=== PATIENT | male | born 1960 | race African-American/Black ===

== ENCOUNTER 2017-09-17 13:47 | Inpatient (IN) | payer BC, OTHER ==
[2017-09-17 14:32] LABS: Hemoglobin 14.6 g/dL (14.0-18.0); Mean Corpuscular HGB CONC 34.4 g/dL (32.0-36.0); Mean Corpuscular Hemoglobin 29.6 pg (27.0-31.0); Mean Corpuscular Volume 86.1 fl (80.0-94.0); Mean Platelet Volume 8.4 fL (7.4-10.4); Platelet Count 240 thou/uL (130-400); RBC Distribution Width 13.1 % (11.5-14.5); Red Blood Cell (RBC) Count 4.95 mill/uL (4.70-6.10); White Blood Cell (WBC) Count 8.2 thou/uL (4.8-10.8)
[2017-09-17 14:37] LABS: ALT (SGPT) 30 U/L (8-55); AST (SGOT) 22 U/L (5-34); Albumin 4.1 g/dL (3.5-5.0); Alkaline Phosphatase 105 U/L (40-150); Anion Gap 14 mmol/L (10-20); BUN (Urea Nitrogen) 7 mg/dL (8.4-25.7); Bilirubin, Total 0.8 mg/dL (0.2-1.2); CK (CPK) 435 U/L (30-200); Calc. Creatinine Clearance 0 mL/min (70-130); Calcium 9.6 mg/dL (7.8-10.44); Carbon Dioxide 24 mmol/L (22-29); Chloride 104 mmol/L (98-107); Estimated GFR-MDRD 75; Globulin 3.9 g/dL (2.4-3.5); Glucose 99 mg/dL (70-105); Lipase 27 U/L (8-78); Potassium 3.7 mmol/L (3.5-5.1); Sodium 138 mmol/L (136-145)
[2017-09-17] MEDS ORDERED: Nitroglycerin 0.4 MG TAB (25 Tab Bottle) ONE (14:39)
[2017-09-17] MEDS ORDERED: Aspirin 81 mg Enteric Coated Tablet ONE (14:39)
[2017-09-17 14:40] LABS: CKMB 1.7 ng/mL (0-6.6); Troponin I 0.011 ng/mL (< 0.028)
[2017-09-17 14:45] LABS: #Basophils 0.1 thou/uL (0.0-0.2); #Lymphocytes 1.9 thou/uL (1.20-3.40); #Monocytes 0.8 thou/uL (0.11-0.59); Band 2 % (5-11); Lymphocytes 25 % (21-51); MDiff Complete? YES; Monocytes 5 % (0-10); Neutrophil 60 % (42-75); PLT Morphology Comment Appears Adequate; RBC Morphology Normal; Reactive Lymphocytes 5 % (0-10)
--- NOTE | 2017-09-17 15:18 | RAD ---
UPRIGHT PORTABLE CHEST 1 VIEW: Date: 09/17/17 HISTORY: 57-year-old male with chest pain. COMPARISON: 01/26/16. FINDINGS: Heart size is normal. The lungs are clear. No pneumonia, edema, or pleural effusion. IMPRESSION: No acute intrathoracic disease. Stable from prior study. POS: [facility]
[2017-09-17] MEDS ORDERED: Nitroglycerin 2% Ointment 1 INCH/1 GM Packet ONE (15:42)
--- NOTE | 2017-09-17 15:48 | HP ---
PRIMARY CARE PHYSICIAN: August Mata M.D. REASON FOR ADMISSION: Chest pain. HISTORY OF PRESENT ILLNESS: A 57-year-old -[place] Citizen male who has history of hypertension and dyslipidemia, but he is not taking any medication. He came to the emergency room today with complain t of chest pain. Patient reports that this afternoon he was watching a football game and all of sudd enly he was having substernal pressure, dull ache sensation which was radiating to neck and teeth. H e denies any associated nausea, vomiting, diaphoresis, shortness of breath. He denies any calf tende rness. He denies any pleuritic chest pain. He denies any relation of chest pain with food, respirat ion or activity. His intensity of pain is about 3-5/10. There was no specific aggravating or reliev ing factor. The pain was constant and that is why he decided to come to the emergency room for evalu ation. In the emergency room, routine blood tests showed elevated total CK, but cardiac enzymes are negative. EKG showed LVH with nonspecific ST-T changes. When I saw this patient, at that time, the patient's pain was subsided and getting better. He denies any trauma. He denies any local tendernes s. He denies any flu-like symptoms. He denies any fever or chills. He denies any constipation, froylan rrhea, melena, or hematochezia. He denies any abdominal pain. He denies any focal symptoms. REVIEW OF SYSTEMS: The following complete review of systems was negative, unless otherwise mentioned in the HPI or below: Constitutional: Weight loss or gain, ability to conduct usual activities. Skin: Rash, itching. Eyes: Double vision, pain. ENT/Mouth: Nose bleeding, neck stiffness, pain, tenderness. Cardiovascular: Palpitations, dyspnea on exertion, orthopnea. Respiratory: Shortness of breath, wheezing, cough, hemoptysis, fever or night sweats. Gastrointestinal: Poor appetite, abdominal pain, heartburn, nausea, vomiting, constipation, or diarr hea. Genitourinary: Urgency, frequency, dysuria, nocturia. Musculoskeletal: Pain, swelling. Neurologic/Psychiatric: Anxiety, depression. Allergy/Immunologic: Skin rash, bleeding tendency. Please see my HPI for pertinent positives and negatives. All other review of systems reviewed and ne gative except as mentioned in the HPI. ALLERGIES: No known drug allergies. CURRENT HOME MEDICATIONS: The patient is not taking any prescribed or non-prescribed medication. PAST MEDICAL HISTORY: Hypertension and dyslipidemia. PAST SURGICAL HISTORY: Appendicectomy, right shoulder surgery, right quadriceps surgery. PAST PSYCHIATRIC HISTORY: Reviewed and negative. SOCIAL HISTORY: Patient is and lives at home with family. He is retired. He used to be pas tor. He denies any tobacco, alcohol or illicit drug abuse. FAMILY HISTORY: No strong family history of premature coronary artery disease, stroke or cancer. EMERGENCY ROOM COURSE: Patient is given aspirin 324 mg and nitroglycerin 0.4 mg sublingual. PHYSICAL EXAMINATION: VITAL SIGNS: On arrival, blood pressure 177/118, pulse 82, respiratory rate 20, temperature 99.5, sa turation 96% on room air, weight 113.4 kilograms. GENERAL: Patient is currently alert, awake, no acute distress. HEAD: Normocephalic, atraumatic. EYES: Pupils round, reactive to light. Extraocular muscles intact. ENT: Oropharynx within normal limits. Moist mucous membranes. No oral lesions. No pharyngeal eryt kay[place], no exudate. NECK: Supple, no JVD, no thyromegaly, no carotid bruit, no jugular venous distension, no meningeal s igns of irritation. LUNGS: Clear to auscultation without any rhonchi or rales. CARDIAC: S1, S2 regular. No murmur, no gallop, no rub. ABDOMEN: Soft, bowel sounds present, nontender, nondistended. No organomegaly, no mass, no suprapub ic tenderness. BACK: Examination unremarkable, no CVA tenderness. EXTREMITIES: Upper extremity passive movements of all joints are normal. Lower extremity, no calf t enderness. EXTREMITIES: No edema. Good peripheral pulsation. SKIN: No skin rash. HEMATOLOGICAL SYSTEM: No lymphadenopathy. PSYCHIATRIC: Normal affect. NEUROLOGIC: The patient is alert and oriented x3. Speech normal. Cranial nerves II-XII intact. Mo tor and sensation within normal limits. No cerebellar signs. Reflexes symmetrical. IMAGING DATA AND SIGNIFICANT LABORATORY DATA: 1. EKG based on my review reveals normal sinus rhythm, LVH, nonspecific ST-T changes. 2. Chest x-ray based on my review, no acute cardiopulmonary process. 3. CBC: WBC 8.2, hemoglobin 14.6, platelet 240 with bandemia. 4. BMP: Sodium 138, potassium 3.7, chloride 104, carbon dioxide 24, anion gap 14, BUN 7, creatinine 1.20, glucose 99, calcium 9.6. 5. LFT: AST 22, ALT 30, alkaline phosphatase 105, albumin 4.1, lipase 27, CK 435, CK-MB 1.7, tropon in 0.011. ASSESSMENT AND PLAN/IMPRESSION: 1. Acute chest pain. Patient's chest pain description is concerning for cardiac etiology given acut e onset of pain and substernal in location and radiating to neck and jaw. EKG is showing left ventri cular hypertrophy with mild nonspecific changes. His troponin is currently negative. He has elevate d total CK. At this point, we will keep this patient in the hospital for observation. We will do se rial cardiac enzymes x3. If troponin remains negative, then we will consider doing stress test tomor row morning for diagnostic reason. If troponin is getting worse or abnormal then, in that case, we w ill consult Cardiology, obtain echocardiography and we will keep him n.p.o. after midnight and possib ly he may need cardiac catheterization only if troponin is significantly abnormal. Currently, paige diamond is given aspirin 325 mg p.o. daily. We will continue nitropatch q.8 hourly. We will check lipid p rofile for risk stratification. 2. Rhabdomyolysis. Patient has elevated total CK along with bandemia. I will check urine drug scre en to rule out any etiology. I will also check TSH to rule out any hypothyroidism. 3. Hypertension, without any specific medications. At this point, we are starting with nitropatch q .8 hourly and then upon discharge, we will consider starting antihypertensive medication. 4. Dyslipidemia. We will repeat lipid profile tomorrow and based on lipid profile we will start sta tin therapy if needed. 5. Morbid obesity. Dietary education given and weight loss education given. Healthy lifestyle celeste ures discussed with the patient. 6. Deep venous thrombosis prophylaxis not needed because we are expecting discharge in 24 hours. 7. Gastrointestinal prophylaxis, Pepcid 20 mg p.o. b.i.d. 8. Code status: The patient is FULL CODE. The patient's is present at bedside and is surrogat e decision maker. Disposition plan based on above-mentioned investigation results. Plan of care discussed with the pat ient and family member at bedside in the emergency room.
[2017-09-17] MEDS ORDERED: HYDROcodone/Acetaminophen 5/325 mg Tablet PO PRN (16:31)
[2017-09-17] MEDS ORDERED: Milk Of Magnesia 30 ML UDCUP PO PRN (16:31)
[2017-09-17] MEDS ORDERED: hydrALAZINE 20 MG/ML VIAL SLOW IVP PRN (16:31)
[2017-09-17] MEDS ORDERED: Loperamide HCl 2 MG CAP PO PRN (16:31)
[2017-09-17] MEDS ORDERED: Eucerin (Mineral Oil/Petrolatum,White) 30 gm Jar TOP PRN (16:31)
[2017-09-17] MEDS ORDERED: Chloraseptic Spray 180 ml Bottle PO PRN (16:31)
[2017-09-17] MEDS ORDERED: Sodium Chloride 0.65% Nasal 44 ML BOT EA NARE PRN (16:31)
[2017-09-17] MEDS ORDERED: Zolpidem Tartrate 5 MG TAB PO PRN (16:31)
[2017-09-17] MEDS ORDERED: Acetaminophen 325 MG TAB PO PRN (16:31)
[2017-09-17] MEDS ORDERED: Nitroglycerin 0.4 MG TAB (25 Tab Bottle) SL PRN (16:31)
[2017-09-17] MEDS ORDERED: Loratadine 10 MG TAB PO PRN (16:31)
[2017-09-17] MEDS ORDERED: Mag-Al 1200 mg/1200 mg/30 ML UDCUP PO PRN (16:31)
[2017-09-17] MEDS ORDERED: Artificial Tears 18 DROP/0.9 ML EA EYE PRN (16:31)
[2017-09-17] MEDS ORDERED: Diabetic Tussin 200 MG/10 ML UDCUP PO PRN (16:31)
[2017-09-17] MEDS ORDERED: Senokot 8.6 MG TAB PO PRN (16:31)
[2017-09-17 17:25] LABS: Troponin I 0.226 ng/mL (< 0.028)
[2017-09-17] MEDS ORDERED: FLU VACC QS2017-18 36 mo. & older 0.5 ML SYRINGE IM ONE (17:30)
[2017-09-17 20:50] LABS: Troponin I 2.644 ng/mL (< 0.028)
[2017-09-17] MEDS ORDERED: Enoxaparin Sodium 120 MG/0.8 ML SYRINGE SC SCH (21:30)
[2017-09-17] MEDS: Nitroglycerin 2% Ointment 1 INCH/1 GM Packet TOP SCH (21:51)
[2017-09-17] MEDS: Famotidine 20 MG TAB PO SCH (21:52)
[2017-09-18] MEDS: Nitroglycerin 2% Ointment 1 INCH/1 GM Packet TOP SCH ×3 (04:11→21:43)
[2017-09-18 04:40] LABS: Cardiac Risk 5.1 (Less than 4.5)
[2017-09-18] MEDS ORDERED: Iopamidol 370 76% 100 ML VIAL ONE (08:10)
--- NOTE | 2017-09-18 08:39 | CON ---
DATE OF CONSULTATION: 09/18/2017 REASON FOR CONSULTATION: Unstable angina. REFERRING PROVIDER: Dr. Cunningham. HISTORY OF PRESENT ILLNESS: Mr. Shoemaker is a 57-year-old gentleman with a past history of hypertension , recently presented with acute onset of chest pain. It occurred at rest. It persisted. He proceed ed to the emergency room and received nitroglycerin with resolution. His troponin went from negative to 2.0. He is currently pain free. PAST MEDICAL HISTORY: Hypertension. ALLERGIES: None. MEDICATIONS: None. PAST SURGICAL HISTORY: Hyperlipidemia, hypertension, appendectomy, shoulder surgery. SOCIAL HISTORY: No current tobacco or alcohol use. He is currently . REVIEW OF SYSTEMS: Ten-point review of systems is reviewed and as above, otherwise negative. PHYSICAL EXAMINATION: GENERAL: Patient is a pleasant male who is in no acute distress. The patient appears his stated age . VITAL SIGNS: Blood pressure 138/99, pulse 69, temperature 98.2. NEUROLOGIC: The patient is alert and oriented times 3 with no focal neurologic deficits. HEENT: Sclerae without icterus. Mouth has moist mucous membranes with normal pallor. NECK: No JVD. Carotid upstroke brisk. No bruits bilaterally. LUNGS: Clear to auscultation with unlabored respirations. BACK: No scoliosis or kyphosis. CARDIAC: Regular rate and rhythm with normal S1 and S2. No S3 or S4 noted. No significant rubs, mur murs, thrills, or gallops noted throughout the precordium. PMI is not displaced. There is no parast ernal heave. ABDOMEN: Soft, nontender, nondistended. No peritoneal signs present. No hepatosplenomegaly. No abnormal striae. EXTREMITIES: 2+ femoral and 2+ dorsalis pedis pulses. No cyanosis, clubbing, or edema. SKIN: No gross abnormalities. PERTINENT LABORATORY DATA: As above. IMAGING DATA: EKG normal sinus rhythm with ST-T wave changes suggesting ischemia noted inferiorly. IMPRESSION: Unstable angina. RECOMMENDATIONS: I discussed a conservative versus aggressive approach. Given the findings and pres entation, would recommend coronary angiography, possible PCI. I discussed the procedure in full deta il with Mr. Shoemaker. Risks included not limited to the following: , stroke, MT, need for emergen cy surgery, loss of limb, bleeding, and infection, as well as a reaction to the dye causing kidney fa ilure and needing long-term dialysis. Other risks include acute stent thrombosis and restenosis, vess el dissection, perforation, need for emergency surgery in addition to distal embolization causing chr onic foot discomfort as well as amputation. All questions were answered. Given the above, the patie nt agreed to proceed with the above procedure. I also discussed drug-coated versus nondrug coated st ent placement. There are no contractions. We will proceed if needed.
[2017-09-18] MEDS: Metoprolol Tartrate 25 MG TAB PO SCH ×2 (08:53→21:28)
[2017-09-18] MEDS: Aspirin 325 MG TAB PO SCH (08:53)
[2017-09-18] MEDS: Famotidine 20 MG TAB PO SCH ×2 (08:53→21:28)
--- NOTE | 2017-09-18 10:51 | PDOC.PN ---
- Subjective Encounter Start Date: 09/18/17 Encounter Start Time: 07:40 -: old records requested/rev Patient seen and examined. No new complaints. No overnight events - Objective Resuscitation Status: Resuscitation Status FULL:Full Resuscitation MAR Reviewed: Yes Vital Signs & Weight: Vital Signs (12 hours) Temp Pulse Resp BP BP Pulse Ox 09/18/17 08:00 98.2 F 69 16 09/18/17 07:41 98.2 F 69 16 138/99 H 98 09/18/17 04:00 98.6 F 61 18 132/79 96 Weight Weight 250 lb I&O: 09/17/17 09/18/17 09/19/17 06:59 06:59 06:59 Intake Total 1250 Balance 1250 Result Diagrams: 09/17/17 14:03 09/17/17 14:03 EKG Reviewed by me: Yes Phys Exam - Physical Examination Constitutional: NAD HEENT: PERRLA, moist MMs, sclera anicteric Neck: no JVD, supple Respiratory: no wheezing, no rales, no rhonchi Cardiovascular: RRR, no significant murmur, no rub Gastrointestinal: soft, non-tender, no distention, positive bowel sounds Musculoskeletal: no edema, pulses present Neurological: non-focal, normal sensation, moves all 4 limbs Psychiatric: normal affect, A&O x 3 Skin: no rash, normal turgor Dx/Plan (1) NSTEMI (non-ST elevated myocardial infarction) Code(s): I21.4 - NON-ST ELEVATION (NSTEMI) MYOCARDIAL INFARCTION Status: Acute (2) Rhabdomyolysis Code(s): M62.82 - RHABDOMYOLYSIS Status: Acute (3) Dyslipidemia Code(s): E78.5 - HYPERLIPIDEMIA, UNSPECIFIED Status: Chronic (4) Hypertension Code(s): I10 - ESSENTIAL (PRIMARY) HYPERTENSION Status: Chronic (5) Obesity (BMI 30.0-34.9) Code(s): E66.9 - OBESITY, UNSPECIFIED Status: Chronic - Plan cont current plan of care, plan discussed w/ family * lovenox given * today cardiac cath * DC stress test * get Echo * add metoprolol * add lipitor * monitor today * change to inpt status * medication reviewed as below * symptomatic treatment. * expecting dc tomorrow Review of Systems - Review of Systems Constitutional: negative: fever, chills, sweats, weakness, malaise, other ENT: negative: Ear Pain, Ear Discharge, Nose Pain, Nose Discharge, Nose Congestion, Mouth Pain, Mouth Swelling, Throat Pain, Throat Swelling, Other Respiratory: negative: Cough, Dry, Shortness of Breath, Hemoptysis, SOB with Excertion, Pleuritic Pain, Sputum, Wheezing Cardiovascular: negative: chest pain, palpitations, orthopnea, paroxysmal nocturnal dyspnea, edema, light headedness, other Gastrointestinal: negative: Nausea, Vomiting, Abdominal Pain, Diarrhea, Constipation, Melena, Hematochezia, Other Genitourinary: negative: Dysuria, Frequency, Incontinence, Hematuria, Retention , Other Musculoskeletal: negative: Neck Pain, Shoulder Pain, Arm Pain, Back Pain, Hand Pain, Leg Pain, Foot Pain, Other Skin: negative: Rash, Lesions, Bharat, Bruising, Other - Medications/Allergies Allergies/Adverse Reactions: Allergies Allergy/AdvReac Type Severity Reaction Status Date / Time No Known Allergies Allergy Verified 09/17/17 17:18 Medications: Current Medications Acetaminophen (Tylenol) 650 mg PO Q4H PRN PRN Reason: Headache/Fever or Pain Hydrocodone Bitart/Acetaminophen ([place] 5/325) 1 tab PO Q4H PRN PRN Reason: Moderate Pain (4-6) Al Hydroxide/Mg Hydroxide (Maalox) 30 ml PO Q6H PRN PRN Reason: Heartburn or Indigestion Artificial Tears (Tears Naturale) 0 drop EA EYE PRN PRN PRN Reason: Dry Eyes Aspirin (Aspirin) 325 mg PO DAILY [facility] Last Admin: 09/18/17 08:53 Dose: 325 mg Atorvastatin Calcium (Lipitor) 10 mg PO HS [facility] Famotidine (Pepcid) 20 mg PO BID [facility] Last Admin: 09/18/17 08:53 Dose: 20 mg Guaifenesin (Robitussin Sf) 200 mg PO Q4H PRN PRN Reason: Cough Hydralazine HCl (Apresoline) 10 mg SLOW IVP Q4H PRN PRN Reason: Systolic BP > 180 Loperamide HCl (Imodium) 2 mg PO PRN PRN PRN Reason: Diarrhea/Loose Stools Loratadine (Claritin) 10 mg PO DAILYPRN PRN PRN Reason: Sinus Symptoms Magnesium Hydroxide (Milk Of Magnesium) 30 ml PO DAILYPRN PRN PRN Reason: Constipation Metoprolol Tartrate (Lopressor) 25 mg PO BID [facility] Last Admin: 09/18/17 08:53 Dose: 25 mg Mineral Oil/White Petrolatum (Eucerin Cream) 0 gm TOP BIDPRN PRN PRN Reason: Dry Skin Nitroglycerin (Nitrostat) 0.4 mg SL Q5MIN PRN PRN Reason: Chest Pain Nitroglycerin (Nitro-Bid 2% Ointment) 0.5 inch TOP Q8HR [facility] Last Admin: 09/18/17 04:11 Dose: Not Given Phenol (Chloraseptic [place] 180 Ml Bot) 0 ml PO PRN PRN PRN Reason: Sore Throat Senna (Senokot) 2 tab PO HSPRN PRN PRN Reason: Constipation Sodium Chloride ([place] Nasal [place] 0.65%) 0 ml EA NARE QIDPRN PRN PRN Reason: Nasal Congestion Zolpidem Tartrate (Ambien) 5 mg PO HSPRN PRN PRN Reason: Insomnia
[2017-09-18] MEDS ORDERED: Verapamil 5 MG/2 ML VIAL ONE (11:08)
[2017-09-18] MEDS ORDERED: Nitroglycerin 100MG/250ML BOT 250 ML ONE (11:08)
[2017-09-18] MEDS ORDERED: Heparin 10,000 UNITS/1 ML VIAL ONE (11:08)
[2017-09-18] MEDS ORDERED: Midazolam HCl 2 mg/2 ml Vial ONE (11:13)
[2017-09-18] MEDS ORDERED: Fentanyl 100 MCG/2 ML VIAL ONE (11:13)
[2017-09-18] MEDS ORDERED: Aggrastat 12.5 MG/250 ML 250 ML ONE (11:54)
[2017-09-18] MEDS ORDERED: Acetaminophen/Codeine 30-300mg Tablet PO PRN ×2 (12:04)
[2017-09-18] MEDS ORDERED: Nitroglycerin 0.4 MG TAB (25 Tab Bottle) SL PRN (12:04)
[2017-09-18] MEDS ORDERED: traMADol HCl 50 MG TAB PO PRN (12:04)
[2017-09-18] MEDS ORDERED: Sodium Chloride 0.9% 1,000 ML IV SCH (12:15)
[2017-09-18] MEDS ORDERED: Sodium Chloride 0.9% 200 ML IV SCH (12:15)
--- NOTE | 2017-09-18 18:05 | CON ---
DATE OF CONSULTATION: 09/18/2017 REASON FOR CONSULTATION: Evaluate the patient with coronary artery disease for coronary artery bypas s grafting. HISTORY OF PRESENT ILLNESS: Mr. Shoemaker is a 57-year-old gentleman whose daughter is a nurse on the te lemetry unit. He was admitted with chest pressure and tightness. He has a history of hypertension a nd dyslipidemia. Troponin was 2.0 in the emergency department. 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 This had a se parate origin from the aorta. The LAD has its origin from the right coronary artery. It is not anjum r whether this passes anteriorly or posteriorly to the pulmonary artery. The right coronary and LAD had no significant stenosis. I have been asked to see him for further recommendations. Currently, t he patient is resting comfortably on the telemetry unit. He has no chest pain. He is on Aggrastat d rips. PAST MEDICAL HISTORY: 1. Hypertension. 2. Dyslipidemia. PAST SURGICAL HISTORY: 1. Appendectomy. 2. Right shoulder surgery. 3. Right quadriceps surgery for quadriceps tear. SOCIAL HISTORY: He has never smoked. He is and lives at home. He is retired. FAMILY HISTORY: His mother had a coronary stent and a pacemaker placed. REVIEW OF SYSTEMS: Ten point review of systems is performed and is negative except as above. PHYSICAL EXAMINATION: GENERAL: Well-developed and well-nourished man, resting comfortably in bed. VITAL SIGNS: Height 6 feet 3 inches, weight 250 pounds, BSA is 2.45. Temperature is 97.7, pulse is 61 and regular, blood pressure 126/67. HEENT: Sclerae nonicteric. Pupils are equal and round bilaterally. NECK: Supple without carotid bruit. CHEST: Clear bilaterally. HEART: Rhythm is regular without murmur. ABDOMEN: Soft and nontender. EXTREMITIES: No cyanosis, clubbing, or edema. VASCULAR: He has palpable carotid, radial, femoral, and dorsalis pedis pulses bilaterally. VENOUS: There are no venous varicosities or venous stasis changes. LABORATORY DATA: Of note, his hemoglobin is 14.6, platelet count is 240,000. Creatinine is 1.2. Po tassium is 3.7. ASSESSMENT AND PLAN: I have discussed his coronary anatomy with he and his daughter. I would like t o get a CT angio of his chest to evaluate the course of his LAD as this will influence whether we byp ass and ligate the proximal LAD or if the LAD passes anterior, the pulmonary artery if it will be lef t alone. Certainly he has bypassable targets in his circumflex system. I have discussed surgery in detail and we will plan for a CT tomorrow and potential surgery on Monday.
[2017-09-18] MEDS: Enoxaparin Sodium 120 MG/0.8 ML SYRINGE SC SCH (21:27)
[2017-09-18] MEDS: Atorvastatin Calcium 10 MG TAB PO SCH (21:27)
[2017-09-18] MEDS: Aggrastat 12.5 MG/250 ML 250 ML IVPB SCH (21:28)
[2017-09-19 05:24] LABS: Hemoglobin 13.8 g/dL (14.0-18.0); Platelet Count 240 thou/uL (130-400)
[2017-09-19] MEDS: Nitroglycerin 2% Ointment 1 INCH/1 GM Packet TOP SCH ×3 (06:13→22:31)
[2017-09-19] MEDS: Aspirin 325 MG TAB PO SCH (08:52)
[2017-09-19] MEDS: Famotidine 20 MG TAB PO SCH ×2 (08:53→20:38)
[2017-09-19] MEDS: Metoprolol Tartrate 25 MG TAB PO SCH ×2 (08:53→20:38)
[2017-09-19] MEDS: Enoxaparin Sodium 120 MG/0.8 ML SYRINGE SC SCH (08:54)
[2017-09-19] MEDS: Aggrastat 12.5 MG/250 ML 250 ML IVPB SCH (08:55)
--- NOTE | 2017-09-19 09:40 | PDOC.PN ---
- Subjective Encounter Start Date: 09/19/17 Encounter Start Time: 08:10 Patient seen and examined. No new complaints. No overnight events - Objective Resuscitation Status: Resuscitation Status FULL:Full Resuscitation MAR Reviewed: Yes Vital Signs & Weight: Vital Signs (12 hours) Temp Pulse Resp BP Pulse Ox 09/19/17 08:47 97.9 F 62 18 135/88 95 09/19/17 04:30 94 L 09/19/17 04:00 97.8 F 56 L 18 117/66 94 L 09/19/17 00:12 94 L 09/19/17 00:00 98.3 F 62 18 111/58 L 94 L Weight Weight 250 lb 8 oz I&O: 09/18/17 09/19/17 09/20/17 06:59 06:59 06:59 Intake Total 1250 2016 Output Total 700 Balance 1250 1316 Result Diagrams: 09/19/17 04:37 09/17/17 14:03 EKG Reviewed by me: Yes Phys Exam - Physical Examination Constitutional: NAD HEENT: PERRLA, moist MMs, sclera anicteric Neck: no JVD, supple Respiratory: no wheezing, no rales, no rhonchi Cardiovascular: RRR, no significant murmur, no rub Gastrointestinal: soft, non-tender, no distention, positive bowel sounds Musculoskeletal: no edema, pulses present Neurological: non-focal, normal sensation, moves all 4 limbs Psychiatric: normal affect, A&O x 3 Skin: no rash, normal turgor Dx/Plan (1) NSTEMI (non-ST elevated myocardial infarction) Code(s): I21.4 - NON-ST ELEVATION (NSTEMI) MYOCARDIAL INFARCTION Status: Acute (2) Rhabdomyolysis Code(s): M62.82 - RHABDOMYOLYSIS Status: Acute (3) Dyslipidemia Code(s): E78.5 - HYPERLIPIDEMIA, UNSPECIFIED Status: Chronic (4) Hypertension Code(s): I10 - ESSENTIAL (PRIMARY) HYPERTENSION Status: Chronic (5) Obesity (BMI 30.0-34.9) Code(s): E66.9 - OBESITY, UNSPECIFIED Status: Chronic (6) CAD (coronary artery disease) Code(s): I25.10 - ATHSCL HEART DISEASE OF [place] CORONARY ARTERY W/O ANG PCTRS Status: Acute - Plan cont current plan of care, plan discussed w/ family * CT surgeon planning to do CABG tomorrow * medication reviewed as below * symptomatic treatment * will monitor. Review of Systems - Review of Systems ENT: negative: Ear Pain, Ear Discharge, Nose Pain, Nose Discharge, Nose Congestion, Mouth Pain, Mouth Swelling, Throat Pain, Throat Swelling, Other Respiratory: negative: Cough, Dry, Shortness of Breath, Hemoptysis, SOB with Excertion, Pleuritic Pain, Sputum, Wheezing Cardiovascular: negative: chest pain, palpitations, orthopnea, paroxysmal nocturnal dyspnea, edema, light headedness, other Gastrointestinal: negative: Nausea, Vomiting, Abdominal Pain, Diarrhea, Constipation, Melena, Hematochezia, Other Genitourinary: negative: Dysuria, Frequency, Incontinence, Hematuria, Retention , Other Musculoskeletal: negative: Neck Pain, Shoulder Pain, Arm Pain, Back Pain, Hand Pain, Leg Pain, Foot Pain, Other Skin: negative: Rash, Lesions, Bharat, Bruising, Other - Medications/Allergies Allergies/Adverse Reactions: Allergies Allergy/AdvReac Type Severity Reaction Status Date / Time No Known Allergies Allergy Verified 09/17/17 17:18 Medications: Current Medications Acetaminophen (Tylenol) 650 mg PO Q4H PRN PRN Reason: Headache/Fever or Pain Acetaminophen/Codeine Phosphate (Tylenol #3) 1 tab PO Q4H PRN PRN Reason: Mild Pain (1-3) Acetaminophen/Codeine Phosphate (Tylenol #3) 2 tab PO Q4H PRN PRN Reason: Moderate Pain (4-6) Hydrocodone Bitart/Acetaminophen ([place] 5/325) 1 tab PO Q4H PRN PRN Reason: Moderate Pain (4-6) Al Hydroxide/Mg Hydroxide (Maalox) 30 ml PO Q6H PRN PRN Reason: Heartburn or Indigestion Artificial Tears (Tears Naturale) 0 drop EA EYE PRN PRN PRN Reason: Dry Eyes Aspirin (Aspirin) 325 mg PO DAILY [facility] Last Admin: 09/19/17 08:52 Dose: 325 mg Atorvastatin Calcium (Lipitor) 10 mg PO HS [facility] Last Admin: 09/18/17 21:27 Dose: 10 mg Enoxaparin Sodium (Lovenox) 120 mg SC 0900,2100 [facility] Last Admin: 09/19/17 08:54 Dose: 120 mg Famotidine (Pepcid) 20 mg PO BID [facility] Last Admin: 09/19/17 08:53 Dose: 20 mg Guaifenesin (Robitussin Sf) 200 mg PO Q4H PRN PRN Reason: Cough Hydralazine HCl (Apresoline) 10 mg SLOW IVP Q4H PRN PRN Reason: Systolic BP > 180 Tirofiban/Sodium Chloride (Aggrastat 12.5 Mg/250 Ml) 250 mls @ 0 mls/hr IVPB INF [facility]; As Directed PRN Reason: Protocol Last Admin: 09/19/17 08:55 Dose: 250 mls Loperamide HCl (Imodium) 2 mg PO PRN PRN PRN Reason: Diarrhea/Loose Stools Loratadine (Claritin) 10 mg PO DAILYPRN PRN PRN Reason: Sinus Symptoms Magnesium Hydroxide (Milk Of Magnesium) 30 ml PO DAILYPRN PRN PRN Reason: Constipation Metoprolol Tartrate (Lopressor) 25 mg PO BID [facility] Last Admin: 09/19/17 08:53 Dose: 25 mg Mineral Oil/White Petrolatum (Eucerin Cream) 0 gm TOP BIDPRN PRN PRN Reason: Dry Skin Nitroglycerin (Nitrostat) 0.4 mg SL Q5MIN PRN PRN Reason: Chest Pain Nitroglycerin (Nitro-Bid 2% Ointment) 0.5 inch TOP Q8HR [facility] Last Admin: 09/19/17 06:13 Dose: Not Given Nitroglycerin (Nitrostat) 0.4 mg SL Q5MIN PRN PRN Reason: Chest Pain Phenol (Chloraseptic [place] 180 Ml Bot) 0 ml PO PRN PRN PRN Reason: Sore Throat Senna (Senokot) 2 tab PO HSPRN PRN PRN Reason: Constipation Sodium Chloride ([place] Nasal [place] 0.65%) 0 ml EA NARE QIDPRN PRN PRN Reason: Nasal Congestion Tramadol HCl (Ultram) 50 mg PO Q6H PRN PRN Reason: Moderate Pain (4-6) Zolpidem Tartrate (Ambien) 5 mg PO HSPRN PRN PRN Reason: Insomnia
[2017-09-19] MEDS ORDERED: Communication Order-Pharmacy FS ONE (11:24)
[2017-09-19] MEDS ORDERED: Diazepam 5 MG TAB PO PRN (11:24)
[2017-09-19] MEDS ORDERED: Aggrastat 12.5 MG/250 ML 250 ML IVPB SCH (12:30)
--- NOTE | 2017-09-19 12:35 | CT ---
CTA CHEST WITH CONTRAST: HISTORY: Evaluate coronary anatomy. TECHNIQUE: CT angiogram of the chest is performed after the intravenous administration of contrast. Three-D corin dering provided. 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 Moderate coronary artery calcifications. The pulmonary trunk and visualized aorta are unremarkable. There are mildly prominent right paratracheal subcarinal lymph nodes. Mild atelectatic changes in the lung bases. No effusion or large pneumothorax on the visualized imag es. The visualized skeleton is unremarkable. IMPRESSION: 1. The left anterior descending artery emanates from the right coronary artery. 2. Nodular soft tissue densities in the anterior mediastinum with interspersed fat with concave arnie ins. Differential includes involuting thymic tissue versus adenopathy. Clinical correlation is advi sed. 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 Minimum followup in 3-6 month PET-CT is recommen ded. POS: [facility]
--- NOTE | 2017-09-19 12:37 | PRG ---
DATE OF SERVICE: 09/19/2017 SUBJECTIVE: Mr. Shoemaker is well known, chest pain and pressure noted. PHYSICAL EXAMINATION: CURRENT VITAL SIGNS: Blood pressure 127/88, pulse 50, temperature 97.3. LUNGS: Clear to auscultation. HEART: Regular rate and rhythm. ABDOMEN: Soft, nontender, and nondistended. EXTREMITIES: No edema. IMPRESSION: Unstable angina. RECOMMENDATIONS: Mr. Shoemaker's current situation is certainly complexed. I discussed several options with Mr. Shoemaker yesterday as well as discussed with Dr. Chuck Frausto. Option one would be to proceed with anticoagulation therapy and relook with angiography on Monday or to reassess the ci rcumflex artery. 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 We could attempt to placement of a stent to the circumflex artery. Unfortunately, the re is a potential for thrombus propagation and further IN. Also discussed option of bypass surgery b ypassing the circumflex artery and intermediate ramus branch at minimum. He may also need bypass of the LAD and will be determined by CT scan of the chest today. Would like to assess the course of the LAD. Discussed at length with his family and Mr. Shoemaker. He has opted for bypass surgery at minimum to the circumflex artery and possibly to the LAD. He is scheduled for tomorrow.
[2017-09-19] MEDS ORDERED: Communication Order-Pharmacy FS SCH (15:45)
[2017-09-19] MEDS: Atorvastatin Calcium 10 MG TAB PO SCH (20:38)
[2017-09-20 04:58] LABS: Hemoglobin 13.4 g/dL (14.0-18.0); Platelet Count 246 thou/uL (130-400)
[2017-09-20] MEDS: Nitroglycerin 2% Ointment 1 INCH/1 GM Packet TOP SCH (06:14)
[2017-09-20] MEDS: Metoprolol Tartrate 25 MG TAB PO SCH (06:20)
[2017-09-20] MEDS ORDERED: Heparin 10,000 UNITS/1 ML VIAL 30,000 UNITS in Sodium Chloride 0.9% 1,000 ML FS SCH (06:45)
[2017-09-20] MEDS ORDERED: CEFAZOLIN/Water 2 GM/20 ML SYRINGE ONE (09:40)
--- NOTE | 2017-09-20 10:17 | PDOC.PN ---
- Subjective Encounter Start Date: 09/20/17 Encounter Start Time: 07:00 Patient seen and examined. No new complaints. No overnight events - Objective Resuscitation Status: Resuscitation Status FULL:Full Resuscitation MAR Reviewed: Yes Vital Signs & Weight: Vital Signs (12 hours) Temp Pulse Resp BP BP Pulse Ox 09/20/17 07:35 98.0 F 53 L 18 139/83 98 09/20/17 06:00 98.3 F 63 16 132/87 95 09/20/17 04:00 98.0 F 57 L 20 132/85 Weight Weight 250 lb 6.4 oz I&O: 09/19/17 09/20/17 09/21/17 06:59 06:59 06:59 Intake Total 2015 775 Output Total 700 675 Balance 1316 100 Result Diagrams: 09/20/17 04:17 09/17/17 14:03 Radiology Reviewed by me: Yes (CTA chest) EKG Reviewed by me: Yes (NSR) Phys Exam - Physical Examination Constitutional: NAD HEENT: PERRLA, moist MMs, sclera anicteric Neck: no JVD, supple Respiratory: no wheezing, no rales, no rhonchi Cardiovascular: RRR, no significant murmur, no rub Gastrointestinal: soft, non-tender, no distention, positive bowel sounds Musculoskeletal: no edema, pulses present Neurological: non-focal, normal sensation, moves all 4 limbs Lymphatic: no nodes Psychiatric: normal affect, A&O x 3 Skin: no rash, normal turgor Dx/Plan (1) NSTEMI (non-ST elevated myocardial infarction) Code(s): I21.4 - NON-ST ELEVATION (NSTEMI) MYOCARDIAL INFARCTION Status: Acute (2) Rhabdomyolysis Code(s): M62.82 - RHABDOMYOLYSIS Status: Acute (3) Dyslipidemia Code(s): E78.5 - HYPERLIPIDEMIA, UNSPECIFIED Status: Chronic (4) Hypertension Code(s): I10 - ESSENTIAL (PRIMARY) HYPERTENSION Status: Chronic (5) Obesity (BMI 30.0-34.9) Code(s): E66.9 - OBESITY, UNSPECIFIED Status: Chronic - Plan cont current plan of care, plan discussed w/ family * medication reviewed as below * symptomatic treatment * today plan for CABG * continue pot op care as per CT surgeon * discussed with about test results. Review of Systems - Review of Systems Constitutional: negative: fever, chills, sweats, weakness, malaise, other ENT: negative: Ear Pain, Ear Discharge, Nose Pain, Nose Discharge, Nose Congestion, Mouth Pain, Mouth Swelling, Throat Pain, Throat Swelling, Other Respiratory: negative: Cough, Dry, Shortness of Breath, Hemoptysis, SOB with Excertion, Pleuritic Pain, Sputum, Wheezing Cardiovascular: negative: chest pain, palpitations, orthopnea, paroxysmal nocturnal dyspnea, edema, light headedness, other Gastrointestinal: negative: Nausea, Vomiting, Abdominal Pain, Diarrhea, Constipation, Melena, Hematochezia, Other Genitourinary: negative: Dysuria, Frequency, Incontinence, Hematuria, Retention , Other Musculoskeletal: negative: Neck Pain, Shoulder Pain, Arm Pain, Back Pain, Hand Pain, Leg Pain, Foot Pain, Other Skin: negative: Rash, Lesions, Bharat, Bruising, Other - Medications/Allergies Allergies/Adverse Reactions: Allergies Allergy/AdvReac Type Severity Reaction Status Date / Time No Known Allergies Allergy Verified 09/17/17 17:18 Medications: Current Medications Heparin Sodium (Porcine) 30, (000 units/ Sodium Chloride) 1,003 mls @ 0 mls/hr FS [facility] PRN Reason: As Directed Stop: 09/20/17 18:00 Metoprolol Tartrate (Lopressor) 25 mg PO BID [facility] Stop: 09/20/17 12:00 Last Admin: 09/20/17 06:20 Dose: 25 mg Miscellaneous Information (Communication Order-Pharmacy) 1 each FS ONE [facility] Stop: 09/20/17 12:00
[2017-09-20] MEDS ORDERED: Albumin 5% 0 ML ONE (11:25)
[2017-09-20] MEDS ORDERED: Fentanyl 100 MCG/2 ML VIAL ONE ×2 (11:33)
[2017-09-20] MEDS ORDERED: Vecuronium 10 MG VIAL ONE ×2 (11:34→14:47)
[2017-09-20] MEDS ORDERED: Midazolam HCl 5 mg/5 ml Vial ONE (11:34)
[2017-09-20] MEDS ORDERED: Bivalirudin 250 MG VIAL ONE (14:22)
[2017-09-20] MEDS ORDERED: Cardioplegic Soln 1,000 ML BAG ONE (14:47)
[2017-09-20] MEDS ORDERED: Heparin 30,000 units/30 ml VIAL ONE (14:47)
[2017-09-20] MEDS ORDERED: Lidocaine 1% PF 5 ML VIAL ONE (14:47)
[2017-09-20] MEDS ORDERED: Calcium Chloride 1 GM/10 ML Abboject SYRINGE ONE (14:47)
[2017-09-20] MEDS ORDERED: Aminocaproic Acid 5 GM/20 ML VIAL ONE (14:47)
[2017-09-20] MEDS ORDERED: Nitroglycerin 50 MG/250 ML BOT ONE (14:47)
[2017-09-20] MEDS ORDERED: Thrombin 5000 UNITS/5 ML VIAL ONE (14:47)
[2017-09-20] MEDS ORDERED: Protamine Sulfate 250 MG/25 ML VIAL ONE ×2 (14:47→15:18)
[2017-09-20] MEDS ORDERED: Propofol 200 MG/20 ML VIAL ONE (14:47)
[2017-09-20] MEDS ORDERED: Sodium Bicarb 50 MEQ/50 ML VIAL ONE (14:47)
[2017-09-20] MEDS ORDERED: Norepinephrine 8 MG/0.9% NS 250 ML ONE (15:03)
[2017-09-20] MEDS ORDERED: Potassium Chloride 20 MEQ/100 ML PREMIX BAG IVPB PRN (16:13)
[2017-09-20] MEDS ORDERED: Hetastarch 6% 500 ML 500 ML IVPB PRN (16:13)
[2017-09-20] MEDS ORDERED: Mag-Al 1200 mg/1200 mg/30 ML UDCUP PO PRN (16:13)
[2017-09-20] MEDS ORDERED: hydrALAZINE 20 MG/ML VIAL SLOW IVP PRN (16:13)
[2017-09-20] MEDS ORDERED: Guaifenesin DM 100-10/5 ML UDCUP PO PRN (16:13)
[2017-09-20] MEDS ORDERED: D5 1/2 NS w/20 mEq KCL 1,000 ML IV SCH (16:13)
[2017-09-20] MEDS ORDERED: HYDROcodone/Acetaminophen 5/325 mg Tablet PO PRN (16:13)
[2017-09-20] MEDS ORDERED: Ondansetron HCl/PF 4 MG/2 ML Vial IVP PRN (16:13)
[2017-09-20] MEDS ORDERED: Nitroglycerin 50 MG/250 ML BOT 250 ML IVPB PRN (16:13)
[2017-09-20] MEDS ORDERED: Norepinephrine 8 MG/0.9% NS 250 ML IVPB PRN (16:13)
[2017-09-20] MEDS ORDERED: Fentanyl 100 MCG/2 ML VIAL SLOW IVP PRN ×2 (16:13)
[2017-09-20] MEDS ORDERED: Promethazine HCl 25 MG/ML VIAL IM PRN (16:13)
[2017-09-20] MEDS ORDERED: Bisacodyl 5 MG TAB PO PRN (16:13)
[2017-09-20] MEDS ORDERED: Bisacodyl 10 MG SUPP PR PRN (16:13)
[2017-09-20] MEDS ORDERED: Acetaminophen 325 MG TAB PO PRN (16:13)
[2017-09-20] MEDS ORDERED: Dextrose 50% Abboject 50 ML SYRINGE SLOW IVP PRN (16:21)
[2017-09-20] MEDS ORDERED: Dextrose 5% in Water 1,000 ML IV PRN (16:21)
[2017-09-20] MEDS ORDERED: Insulin Regular 300 UNITS/3 ML VIAL SC PRN (16:21)
[2017-09-20] MEDS ORDERED: Nitroglycerin 50 MG/250 ML BOT 250 ML ONE (16:28)
[2017-09-20] MEDS: Morphine 2 MG/ML SYRINGE SLOW IVP PRN (16:40)
[2017-09-20] MEDS: Ketorolac Tromethamine 30 MG/ML VIAL IVP SCH ×2 (16:44→23:55)
[2017-09-20] MEDS ORDERED: Magnesium 2 GM/NS 0.9% 100 ML 2 GM in Premix Bag 1 BAG IVPB SCH (16:45)
[2017-09-20 16:46] LABS: Actual Bicarbonate (HCO3a) 22.6 mEq/L (22-26); Base Excess (BEa) -2.7 mEq/L (0 (+/-) 2.5); CO2 Tension 40.8 mmHg (35.0-45.0); O2 Tension (PaO2) 79.3 mmHg (80.0-100.0); pH, Arterial 7.36 (7.35-7.45)
[2017-09-20 16:47] LABS: Puncture Site ALINE
--- NOTE | 2017-09-20 16:50 | RAD ---
CHEST ONE VIEW 09/20/17 HISTORY: Post open heart surgery. COMPARISON: Chest one view 09/17/17. FINDINGS: The patient is intubated. Endotracheal tube tip craniad to the matilde approximately 2.5 cm. Central v enous catheter is in place with tip in the right atrium. Pericardial drains are present. Small left e ffusion. Atelectatic changes. IMPRESSION: Expected postoperative changes. No complication. POS: [facility]
[2017-09-20 17:01] LABS: INR-International Normal Ratio 1.3; PTT 25.8 SEC (22.9-36.1); Prothrombin Time 16.6 SEC (12.0-14.7)
[2017-09-20 17:15] LABS: Anion Gap 12 mmol/L (10-20); BUN (Urea Nitrogen) 7 mg/dL (8.4-25.7); Calc. Creatinine Clearance 112 mL/min (70-130); Calcium 9.1 mg/dL (7.8-10.44); Carbon Dioxide 22 mmol/L (22-29); Chloride 110 mmol/L (98-107); Estimated GFR-MDRD 78; Glucose 116 mg/dL (70-105); Potassium 4.2 mmol/L (3.5-5.1); Sodium 140 mmol/L (136-145)
[2017-09-20 17:18] LABS: Band 8 % (5-11); Eosinophils 2 % (0-10); Hemoglobin 13.4 g/dL (14.0-18.0); Lymphocytes 17 % (21-51); MDiff Complete? YES; Mean Corpuscular HGB CONC 32.8 g/dL (32.0-36.0); Mean Corpuscular Hemoglobin 28.3 pg (27.0-31.0); Mean Corpuscular Volume 86.3 fl (80.0-94.0); Mean Platelet Volume 8.1 fL (7.4-10.4); Monocytes 3 % (0-10); Neutrophil 66 % (42-75); PLT Morphology Comment Appears Adequate; Platelet Count 190 thou/uL (130-400); Reactive Lymphocytes 4 % (0-10); Red Blood Cell (RBC) Count 4.74 mill/uL (4.70-6.10)
--- NOTE | 2017-09-20 19:13 | OP ---
DATE OF PROCEDURE: 09/20/2017 PREOPERATIVE DIAGNOSES: Coronary artery disease/hypertension - the origin of the left anterior descending is off of the right coronary artery orifice passes anterior to the pulmonary artery and into the usual left anterior descending territory. The circumflex has a solitary origin in the usual location for the left main. This artery had an acute thrombosis with free floating thrombus. The patient has been kept on Aggrenox for 36 hours and Lovenox prior to being taken for surgical intervention. PROCEDURES: 1. Coronary artery bypass grafting x2 - 1. Reversed saphenous vein to 3.0 mm ramus. 2. Reversed saphenous vein to 3.0 mm OM. 2. Excision of anterior mediastinal lymph nodes SURGEON: Chuck Frausto M.D. and Giovanni Enamorado M.D. ANESTHESIA: General endotracheal, Dr. Jonas Cuellar. PUMP TIME: 48 minutes. CROSS CLAMP TIME: 28 minutes. LOW CORE TEMPERATURE: 34 degrees Celsius. ELECTRIC SWITCH TESTER: Eric Yung. DRAINS: 24-Slovak chest tubes x2. DRIPS: Levophed 5 mcg per minute. TRANSFUSIONS: None. DESCRIPTION OF PROCEDURE: After operative consent was obtained, the patient was brought to the operating room and placed in the supine position on the operating room table. Appropriate anesthetic monitor was placed and general endotracheal anesthesia induced. Chest, abdomen, and legs were prepped and draped in the usual sterile fashion. Using an endoscopic technique, the distal left greater saphenous vein was harvested. There was one short segment unusual of the vein below the knee. Above the knee, on ultrasound, the vein appeared to be large and this was taken utilizing skip incisions and an appropriate length was obtained for bypass. Wounds were irrigated and closed in layers. Median sternotomy was performed. The patient was systemically heparinized. Thymic fat and pericardium were divided with electrocautery. a large nest of lymph nodes was present in the anterior mediastinum and thymic fat. These nodes were excised and sent to pathology. Pericardial stay sutures were placed. Aortic and atrial cannulation was performed. After adequate heparinization, the patient was placed on cardiopulmonary bypass. Retrograde prime was performed prior to going on bypass. Aortic cross-clamp was applied and antegrade sanguinous cardioplegic arrest obtained. One liter of antegrade cold cardioplegia was given. This was [place] cardioplegia. Topical cold solution was used. Reversed saphenous vein was anastomosed to the OM in end-to- side fashion with running 7-0 Prolene suture. Anastomosis was tested and was hemostatic. Reversed saphenous vein was anastomosed to the ramus in end-to- side fashion with running 7-0 Prolene suture. Anastomosis was tested and was hemostatic. Cross-clamp was removed and partial occluding clamp placed. Saphenous vein to the ramus was anastomosed to aortic root. Partial occluding clamp was removed. Saphenous vein to the OM was anastomosed to the sidewall of the ramus graft. Grafts deaired. Anastomoses were inspected for hemostasis, which was good. The patient was warmed and weaned from cardiopulmonary bypass. After resumption of sinus rhythm, good hemodynamics, and temperature greater than 36.5, bypass was discontinued. Protamine was administered. Transfusions were given. Decannulation was performed and pursestring sutures secured. After adequate hemostasis had been obtained, vancomycin paste was placed on the sternal edges. Twenty-four Slovak chest tubes x2 were placed in the mediastinum. Sternum was treated with platelet-rich plasma and closed with #7 wire. Wounds were irrigated, treated with platelet-poor plasma and closed in multiple layers. The patient tolerated procedure well, and was transferred to the intensive care unit in stable, but critical condition. AGGIE
[2017-09-20 19:44] LABS: Actual Bicarbonate (HCO3a) 18.8 mEq/L (22-26); Base Excess (BEa) -4.1 mEq/L (0 (+/-) 2.5); CO2 Tension 28.2 mmHg (35.0-45.0); Hematocrit-ABG 36.3 % (42.0-52.0); Hemoglobin (Hb) 11.9 g/dL (14.0-18.0); O2 Tension (PaO2) 133.3 mmHg (80.0-100.0); pH, Arterial 7.44 (7.35-7.45)
[2017-09-20 19:45] LABS: Calcium, Ionized 1.1 mmol/L (1.12-1.30); Puncture Site LINE
[2017-09-20] MEDS: Famotidine/PF 20 mg/2ml Vial SLOW IVP SCH (22:16)
[2017-09-20] MEDS: CEFAZOLIN/Water 2 GM/20 ML SYRINGE SLOW IVP SCH (22:17)
[2017-09-20 22:36] LABS: Hemoglobin 12.2 g/dL (14.0-18.0)
[2017-09-20 22:50] LABS: Potassium 4.4 mmol/L (3.5-5.1)
[2017-09-21 04:37] LABS: #Lymphocytes 1.8 thou/uL (1.20-3.40); #Monocytes 0.7 thou/uL (0.11-0.59); #Neutrophils 7.1 thou/uL (1.40-6.50); %Basophils 0.1 % (0.0-1.0); %Eosinophils 0.2 % (0.0-10.0); %Lymphocytes 18.4 % (21.0-51.0); %Monocytes 7.4 % (0.0-10.0); Hemoglobin 11.7 g/dL (14.0-18.0); Mean Corpuscular HGB CONC 32.8 g/dL (32.0-36.0); Mean Corpuscular Hemoglobin 28.2 pg (27.0-31.0); Mean Corpuscular Volume 86.1 fl (80.0-94.0); Mean Platelet Volume 8.5 fL (7.4-10.4); Platelet Count 172 thou/uL (130-400); Red Blood Cell (RBC) Count 4.14 mill/uL (4.70-6.10); White Blood Cell (WBC) Count 9.6 thou/uL (4.8-10.8)
[2017-09-21] MEDS: Morphine 2 MG/ML SYRINGE SLOW IVP PRN (04:38)
[2017-09-21 04:54] LABS: Anion Gap 11 mmol/L (10-20); BUN (Urea Nitrogen) 8 mg/dL (8.4-25.7); Calc. Creatinine Clearance 136 mL/min (70-130); Calcium 8.2 mg/dL (7.8-10.44); Carbon Dioxide 23 mmol/L (22-29); Chloride 109 mmol/L (98-107); Estimated GFR-MDRD Greater than 90; Glucose 131 mg/dL (70-105); Potassium 4.2 mmol/L (3.5-5.1); Sodium 139 mmol/L (136-145)
[2017-09-21] MEDS: Ketorolac Tromethamine 30 MG/ML VIAL IVP SCH ×3 (06:23→17:35)
[2017-09-21] MEDS: CEFAZOLIN/Water 2 GM/20 ML SYRINGE SLOW IVP SCH ×2 (06:23→14:02)
[2017-09-21 07:10] VITALS: BMI 31.4
[2017-09-21] MEDS: Aspirin 325 MG TAB PO SCH (08:29)
[2017-09-21] MEDS: Famotidine/PF 20 mg/2ml Vial SLOW IVP SCH (08:29)
[2017-09-21] MEDS: Magnesium 2 GM/NS 0.9% 100 ML 2 GM in Premix Bag 1 BAG IVPB SCH (08:30)
--- NOTE | 2017-09-21 08:39 | RAD ---
CHEST 1 VIEW: HISTORY: Heart surgery. Followup. COMPARISON: 09/20/17. FINDINGS: Cardiac silhouette is magnified and enlarged. Pulmonary vasculature is accentuated by shallow inspir ation. Mild bibasilar atelectasis is apparent. Mediastinum is midline. Endotracheal catheter is no longer apparent. Right subclavian central venous catheter remains in place. director process improvement leads overlie the chest. IMPRESSION: Interval extubation. Otherwise, stable postoperative appearance of the chest. POS: [facility]
--- NOTE | 2017-09-21 11:19 | PDOC.PN ---
- Subjective Encounter Start Date: 09/21/17 Encounter Start Time: 09:40 Patient seen and examined. No new complaints. No overnight events pt is seated in chair, chest tube in place - Objective Resuscitation Status: Resuscitation Status FULL:Full Resuscitation MAR Reviewed: Yes Vital Signs & Weight: Vital Signs (12 hours) Temp 09/21/17 08:00 97.5 F L Weight Weight 251 lb 15.814 oz Most Recent Monitor Data Heart Rate from ECG 65 NIBP 109/66 NIBP BP-Mean 76 Respiration from ECG 23 SpO2 100 I&O: 09/20/17 09/21/17 09/22/17 06:59 06:59 06:59 Intake Total 775 579.1 Output Total 675 1880 140 Balance 100 -1300.9 -140 Result Diagrams: 09/21/17 04:10 09/21/17 04:10 Additional Labs: Accuchecks 09/21/17 09/20/17 09/20/17 00:05 20:12 16:41 POC Glucose 123 H 128 H 110 09/20/17 09/20/17 09/20/17 15:30 14:41 13:52 POC Glucose 96 109 98 09/20/17 12:48 POC Glucose 95 Radiology Reviewed by me: Yes (chest xray) EKG Reviewed by me: Yes (nsr) Phys Exam - Physical Examination Constitutional: NAD HEENT: PERRLA, moist MMs, sclera anicteric Neck: no JVD, supple Respiratory: no wheezing, no rales, no rhonchi chest tube in place, surgical site with dressing Cardiovascular: RRR, no significant murmur, no rub Gastrointestinal: soft, non-tender, no distention, positive bowel sounds Musculoskeletal: no edema, pulses present Neurological: non-focal, normal sensation Lymphatic: no nodes Psychiatric: normal affect, A&O x 3 Skin: no rash, normal turgor Dx/Plan (1) NSTEMI (non-ST elevated myocardial infarction) Code(s): I21.4 - NON-ST ELEVATION (NSTEMI) MYOCARDIAL INFARCTION Status: Acute (2) CAD (coronary artery disease) Code(s): I25.10 - ATHSCL HEART DISEASE OF [place] CORONARY ARTERY W/O ANG PCTRS Status: Acute (3) S/P CABG x 2 Code(s): Z95.1 - PRESENCE OF AORTOCORONARY BYPASS GRAFT Status: Acute (4) Rhabdomyolysis Code(s): M62.82 - RHABDOMYOLYSIS Status: Resolved (5) Dyslipidemia Code(s): E78.5 - HYPERLIPIDEMIA, UNSPECIFIED Status: Chronic (6) Hypertension Code(s): I10 - ESSENTIAL (PRIMARY) HYPERTENSION Status: Chronic (7) Obesity (BMI 30.0-34.9) Code(s): E66.9 - OBESITY, UNSPECIFIED Status: Chronic - Plan cont current plan of care, plan discussed w/ family * medication reviewed as below * symptomatic treatment * continue post CABG treatment as per CT surgeon and cardiology * stable and improving * will monitor. Review of Systems - Review of Systems Constitutional: negative: fever, chills, sweats, weakness, malaise, other ENT: negative: Ear Pain, Ear Discharge, Nose Pain, Nose Discharge, Nose Congestion, Mouth Pain, Mouth Swelling, Throat Pain, Throat Swelling, Other Respiratory: negative: Cough, Dry, Shortness of Breath, Hemoptysis, SOB with Excertion, Pleuritic Pain, Sputum, Wheezing Cardiovascular: negative: chest pain, palpitations, orthopnea, paroxysmal nocturnal dyspnea, edema, light headedness, other Gastrointestinal: negative: Nausea, Vomiting, Abdominal Pain, Diarrhea, Constipation, Melena, Hematochezia, Other Genitourinary: negative: Dysuria, Frequency, Incontinence, Hematuria, Retention , Other Musculoskeletal: negative: Neck Pain, Shoulder Pain, Arm Pain, Back Pain, Hand Pain, Leg Pain, Foot Pain, Other Skin: negative: Rash, Lesions, Bharat, Bruising, Other - Medications/Allergies Allergies/Adverse Reactions: Allergies Allergy/AdvReac Type Severity Reaction Status Date / Time No Known Allergies Allergy Verified 09/17/17 17:18 Medications: Current Medications Acetaminophen (Tylenol) 650 mg PO Q6H PRN PRN Reason: Headache/Fever Or Mild Pain Last Admin: 09/21/17 06:29 Dose: 650 mg Hydrocodone Bitart/Acetaminophen ([place] 5/325) 1 tab PO Q4H PRN PRN Reason: Moderate Pain (4-6) Hydrocodone Bitart/Acetaminophen ([place] 5/325) 2 tab PO Q4H PRN PRN Reason: Severe Pain (7-10) Al Hydroxide/Mg Hydroxide (Maalox) 30 ml PO Q4H PRN PRN Reason: Indigestion Albumin Human (Albumin 5%) 12.5 gm IVPB Q6H PRN PRN Reason: To Maintain SBP> 90 mmHG Stop: 09/21/17 16:14 Last Admin: 09/20/17 18:49 Dose: 12.5 gm Albumin Human (Albumin 5%) 25 gm IVPB Q6H PRN PRN Reason: To Maintain SBP > 90 mmHG Stop: 09/21/17 16:14 Albuterol/Ipratropium (Duoneb) 3 ml NEB [id number] PRN PRN Reason: SHORTNESS OF BREATH Aspirin (Aspirin) 325 mg PO DAILY [facility] Last Admin: 09/21/17 08:29 Dose: 325 mg Bisacodyl (Dulcolax) 10 mg PO Q12H PRN PRN Reason: Constipation Bisacodyl (Dulcolax) 10 mg AL Q12H PRN PRN Reason: Constipation Cefazolin Sodium (Ancef) 2 gm SLOW IVP Q8HR [facility] Stop: 09/21/17 14:01 Last Admin: 09/21/17 06:23 Dose: 2 gm Famotidine (Pepcid) 20 mg PO BID [facility] Fentanyl (Sublimaze) 25 mcg SLOW IVP Q2H PRN PRN Reason: Moderate Pain (4-6) Stop: 09/22/17 15:56 Fentanyl (Sublimaze) 50 mcg SLOW IVP Q2H PRN PRN Reason: Severe Pain (7-10) Stop: 09/22/17 15:56 Guaifenesin/Dextromethorphan (Robitussin Dm) 15 ml PO Q4H PRN PRN Reason: Cough Hydralazine HCl (Apresoline) 10 mg SLOW IVP Q6H PRN PRN Reason: To Maintain SBP< 140mmHG Magnesium Sulfate 2 gm/ Device 100 mls @ 100 mls/hr IVPB QAM [facility] Stop: 09/22/17 09:59 Last Admin: 09/21/17 08:30 Dose: 100 mls Ketorolac Tromethamine (Toradol) 30 mg IVP Q6HR [facility] Stop: 09/23/17 18:01 Last Admin: 09/21/17 06:23 Dose: 30 mg Morphine Sulfate (Morphine) 2 mg SLOW IVP Q15MIN PRN PRN Reason: Severe Pain (7-10) Last Admin: 09/21/17 04:38 Dose: 2 mg Ondansetron HCl (Zofran) 4 mg IVP Q6H PRN PRN Reason: Nausea/Vomiting Last Admin: 09/20/17 22:45 Dose: 4 mg Potassium Chloride (Kcl) 20 meq IVPB PRN PRN PRN Reason: K level </= 4.0 Sodium Chloride (Flush - Normal Saline) 10 ml IVF PRN PRN PRN Reason: Saline Flush
[2017-09-21] MEDS: HYDROcodone/Acetaminophen 5/325 mg Tablet PO PRN ×2 (15:57→22:23)
--- NOTE | 2017-09-21 19:52 | EKG ---
Test Reason : Blood Pressure : / mmHG Vent. Rate : 082 BPM Atrial Rate : 082 BPM P-R Int : 162 ms QRS Dur : 078 ms QT Int : 386 ms P-R-T Axes : 038 -15 -06 degrees QTc Int : 450 ms Normal sinus rhythm Nonspecific T wave abnormality Abnormal ECG When compared with ECG of 17-SEP-2017 13:52, (Unconfirmed) Non-specific change in ST segment in Inferior leads Nonspecific T wave abnormality, worse in Inferior leads Confirmed by REE COOK, SLito ([id number]) on 09/21/2017 7:52:17 PM Referred By: ANDREA Confirmed By:DR. Bran KEENAN MD
[2017-09-21] MEDS ORDERED: Artificial Tears 18 DROP/0.9 ML EA EYE PRN (20:25)
[2017-09-21] MEDS ORDERED: diphenhydrAMINE 25 MG CAP PO PRN (20:25)
[2017-09-21] MEDS ORDERED: Zolpidem Tartrate 5 MG TAB PO PRN (20:25)
[2017-09-21] MEDS ORDERED: Nitroglycerin 0.4 MG TAB (25 Tab Bottle) SL PRN (20:25)
[2017-09-21] MEDS: Famotidine 20 MG TAB PO SCH (21:12)
[2017-09-22] MEDS: Ketorolac Tromethamine 30 MG/ML VIAL IVP SCH ×3 (00:11→11:46)
--- NOTE | 2017-09-22 07:36 | PRG ---
DATE OF SERVICE: 09/22/2017 Mr. Shoemaker is doing well. He recently underwent bypass surgery and has done well. He is extubated. PHYSICAL EXAMINATION: VITAL SIGNS: Blood pressure 110/70, pulse 80, respirations 20. LUNGS: Clear to auscultation. CARDIAC: Regular rate and rhythm. ABDOMEN: Soft, nontender, nondistended. EXTREMITIES: No edema. IMPRESSION: 1. Coronary artery disease. 2. Unstable angina. 3. Status post bypass surgery. RECOMMENDATIONS: Mr. Shoemaker is doing well. I would continue current therapy as prescribed. Will rec ommend adding beta martha therapy and statin therapy once his blood pressure remains stable. Chest tube removal per Dr. Chuck Frausto.
[2017-09-22] MEDS: Aspirin 325 MG TAB PO SCH (08:43)
[2017-09-22] MEDS: Magnesium 2 GM/NS 0.9% 100 ML 2 GM in Premix Bag 1 BAG IVPB SCH (08:43)
[2017-09-22] MEDS: Famotidine 20 MG TAB PO SCH (08:43)
--- NOTE | 2017-09-22 09:49 | PDOC.PN ---
- Subjective Encounter Start Date: 09/22/17 Encounter Start Time: 07:50 Patient seen and examined. No new complaints. No overnight events - Objective Resuscitation Status: Resuscitation Status FULL:Full Resuscitation MAR Reviewed: Yes Vital Signs & Weight: Vital Signs (12 hours) Temp Pulse Resp BP BP Pulse Ox 09/22/17 08:00 99.4 F 77 17 122/75 94 L 09/22/17 04:50 93 L 09/22/17 04:00 99.0 F 77 18 117/66 93 L Weight Weight 257 lb 3.2 oz Most Recent Monitor Data Heart Rate from ECG 78 NIBP 113/57 NIBP BP-Mean 82 Respiration from ECG 22 SpO2 94 I&O: 09/21/17 09/22/17 09/23/17 06:59 06:59 06:59 Intake Total 579.1 2693 Output Total 1880 1015 Balance -1300.9 1678 Result Diagrams: 09/21/17 04:10 09/21/17 04:10 EKG Reviewed by me: Yes (nsr) Phys Exam - Physical Examination Constitutional: NAD HEENT: PERRLA, moist MMs, sclera anicteric Neck: no JVD, supple Respiratory: no wheezing, no rales, no rhonchi Cardiovascular: RRR, no significant murmur, no rub surgical site clean and healthy Gastrointestinal: soft, non-tender, no distention, positive bowel sounds Musculoskeletal: no edema, pulses present Neurological: non-focal, normal sensation, moves all 4 limbs Lymphatic: no nodes Psychiatric: normal affect, A&O x 3 Skin: no rash, normal turgor Dx/Plan (1) S/P CABG x 2 Code(s): Z95.1 - PRESENCE OF AORTOCORONARY BYPASS GRAFT Status: Acute (2) NSTEMI (non-ST elevated myocardial infarction) Code(s): I21.4 - NON-ST ELEVATION (NSTEMI) MYOCARDIAL INFARCTION Status: Acute (3) Rhabdomyolysis Code(s): M62.82 - RHABDOMYOLYSIS Status: Resolved (4) Dyslipidemia Code(s): E78.5 - HYPERLIPIDEMIA, UNSPECIFIED Status: Chronic (5) Hypertension Code(s): I10 - ESSENTIAL (PRIMARY) HYPERTENSION Status: Chronic (6) Obesity (BMI 30.0-34.9) Code(s): E66.9 - OBESITY, UNSPECIFIED Status: Chronic (7) CAD (coronary artery disease) Code(s): I25.10 - ATHSCL HEART DISEASE OF [place] CORONARY ARTERY W/O ANG PCTRS Status: Chronic - Plan cont current plan of care, plan discussed w/ family * continue cardiac rehab * continue post CABG care * medication reviewed as below * symptomatic treatment. Review of Systems - Review of Systems ENT: negative: Ear Pain, Ear Discharge, Nose Pain, Nose Discharge, Nose Congestion, Mouth Pain, Mouth Swelling, Throat Pain, Throat Swelling, Other Respiratory: negative: Cough, Dry, Shortness of Breath, Hemoptysis, SOB with Excertion, Pleuritic Pain, Sputum, Wheezing Cardiovascular: negative: chest pain, palpitations, orthopnea, paroxysmal nocturnal dyspnea, edema, light headedness, other Gastrointestinal: negative: Nausea, Vomiting, Abdominal Pain, Diarrhea, Constipation, Melena, Hematochezia, Other Genitourinary: negative: Dysuria, Frequency, Incontinence, Hematuria, Retention , Other Musculoskeletal: negative: Neck Pain, Shoulder Pain, Arm Pain, Back Pain, Hand Pain, Leg Pain, Foot Pain, Other Skin: negative: Rash, Lesions, Bharat, Bruising, Other - Medications/Allergies Allergies/Adverse Reactions: Allergies Allergy/AdvReac Type Severity Reaction Status Date / Time No Known Allergies Allergy Verified 09/17/17 17:18 Medications: Current Medications Acetaminophen (Tylenol) 650 mg PO Q6H PRN PRN Reason: Headache/Fever Or Mild Pain Last Admin: 09/21/17 06:29 Dose: 650 mg Hydrocodone Bitart/Acetaminophen ([place] 5/325) 1 tab PO Q4H PRN PRN Reason: Moderate Pain (4-6) Hydrocodone Bitart/Acetaminophen ([place] 5/325) 2 tab PO Q4H PRN PRN Reason: Severe Pain (7-10) Last Admin: 09/21/17 22:23 Dose: 2 tab Al Hydroxide/Mg Hydroxide (Maalox) 30 ml PO Q4H PRN PRN Reason: Indigestion Albuterol/Ipratropium (Duoneb) 3 ml NEB [id number] PRN PRN Reason: SHORTNESS OF BREATH Artificial Tears (Tears Naturale) 0 drop EA EYE PRN PRN PRN Reason: Dry Eyes Aspirin (Aspirin) 325 mg PO DAILY [facility] Last Admin: 09/22/17 08:43 Dose: 325 mg Atorvastatin Calcium (Lipitor) 40 mg PO HS [facility] Bisacodyl (Dulcolax) 10 mg PO Q12H PRN PRN Reason: Constipation Bisacodyl (Dulcolax) 10 mg IA Q12H PRN PRN Reason: Constipation Diphenhydramine HCl (Benadryl) 25 mg PO Q6H PRN PRN Reason: Itching & Insomnia or Vern Selvin Famotidine (Pepcid) 20 mg PO BID [facility] Last Admin: 09/22/17 08:43 Dose: 20 mg Fentanyl (Sublimaze) 25 mcg SLOW IVP Q2H PRN PRN Reason: Moderate Pain (4-6) Stop: 09/22/17 15:56 Fentanyl (Sublimaze) 50 mcg SLOW IVP Q2H PRN PRN Reason: Severe Pain (7-10) Stop: 09/22/17 15:56 Guaifenesin/Dextromethorphan (Robitussin Dm) 15 ml PO Q4H PRN PRN Reason: Cough Hydralazine HCl (Apresoline) 10 mg SLOW IVP Q6H PRN PRN Reason: To Maintain SBP< 140mmHG Magnesium Sulfate 2 gm/ Device 100 mls @ 100 mls/hr IVPB QAM [facility] Stop: 09/22/17 09:59 Last Admin: 09/22/17 08:43 Dose: 100 mls Ketorolac Tromethamine (Toradol) 30 mg IVP Q6HR [facility] Stop: 09/23/17 18:01 Last Admin: 09/22/17 06:28 Dose: 30 mg Metoprolol Succinate (Toprol Xl) 25 mg PO DAILY [facility] Last Admin: 09/22/17 08:43 Dose: 25 mg Nitroglycerin (Nitrostat) 0.4 mg SL Q5MIN PRN PRN Reason: Chest Pain Ondansetron HCl (Zofran) 4 mg IVP Q6H PRN PRN Reason: Nausea/Vomiting Last Admin: 09/20/17 22:45 Dose: 4 mg Sodium Chloride (Flush - Normal Saline) 10 ml IVF PRN PRN PRN Reason: Saline Flush Zolpidem Tartrate (Ambien) 5 mg PO HSPRN PRN PRN Reason: Insomnia Last Admin: 09/22/17 00:11 Dose: 5 mg
--- NOTE | 2017-09-22 15:56 | PRG ---
DATE OF SERVICE: 09/22/2017 SUBJECTIVE: Mr. Shoemaker is doing well. He has been transferred to telemetry monitoring. No current co mplaints. His chest tube has been discontinued. OBJECTIVE: VITAL SIGNS: Blood pressure 107/57, pulse 70, temperature 99.4. LUNGS: Clear to auscultation. HEART: Regular rate and rhythm. ABDOMEN: Soft, nontender, nondistended. EXTREMITIES: No edema. IMPRESSION: 1. Coronary artery disease. 2. Status post bypass surgery. 3. Unstable angina. RECOMMENDATIONS: 1. Added Toprol-XL 25 at bedtime. 2. Add atorvastatin 40 at bedtime. 3. Incentive spirometry and cardiac rehab.
[2017-09-22 16:49] VITALS: BP 118/60; TEMP 99.2
[2017-09-22] MEDS ORDERED: Atorvastatin Calcium 40 MG TAB PO SCH (21:00)
--- NOTE | 2017-09-22 23:38 | DIS ---
DATE OF ADMISSION: 09/17/2017 DATE OF DISCHARGE: 09/22/2017 DIAGNOSES: 1. Coronary artery disease, status post non-ST elevation myocardial infarction. 2. Hypertension. PROCEDURES: 1. Cardiac catheterization. 2. Coronary artery bypass grafting x2. A. Reversed saphenous vein to ramus. B. Reversed saphenous vein to OM. DESCRIPTION OF HOSPITAL STAY: Mr. Shoemaker was admitted through the emergency department and urgently t aken to the lift slab operator after his troponin return was positive. He was found to have a unique origin of his circumflex artery in the usual location of the left main. This had a short segment dissection w ith free floating thrombus. He was started on Aggrastat for this. His LAD origin was on the right c oronary artery just past the anterior to his pulmonary artery and gave branch to LAD and diagonal, wh ich had no significant disease. His right coronary also had no significant disease. He was taken to the operating room and underwent bypass to ramus and OM using saphenous vein. He has done well post operatively and being discharged to home to follow up with me in [address] Trejo in a month . DISCHARGE MEDICATIONS: Include; 1. Aspirin 325 mg q. day. 2. Toprol-XL 25 mg q. day. 3. Crestor 10 mg at bedtime. 4. [place] 5/325 one to two q.6 hours p.r.n. pain.
--- NOTE | 2017-09-23 07:21 | DIS ---
ADDENDUM Please see discharge summary dictated by Dr. Chuck Frausto. There is no change in discharge summary. Please see discharge medications as prescribed by Dr. Chuck Frausto. Please see my HPI for further details.
== END 2017-09-22 17:08 | disposition home or self-care (01) | DRG 234 ==
LOC: ERS 13:47 → OBSVTOIN 15:30 → 2SW 15:30 → 2NO 09-18 12:07 → CCU 09-20 09:53 → 2NO 09-21 19:56
PROVIDERS: ADMIT Internal Medicine; ATTEND Internal Medicine
PROC: 4A023N7 Measurement of Cardiac Sampling and Pressure, Left Heart, Percutaneous Approach (ICD-10-PCS; 2017-09-18)
PROC: 5A1221Z Performance of Cardiac Output, Continuous (ICD-10-PCS; 2017-09-18)
PROC: B2111ZZ Fluoroscopy of Multiple Coronary Arteries using Low Osmolar Contrast (ICD-10-PCS; 2017-09-18)
PROC: 021109W Bypass Coronary Artery, Two Arteries from Aorta with Autologous Venous Tissue, Open Approach (ICD-10-PCS; principal; 2017-09-20)
PROC: 06BQ4ZZ Excision of Left Saphenous Vein, Percutaneous Endoscopic Approach (ICD-10-PCS; 2017-09-20)
PROC: 07B70ZX Excision of Thorax Lymphatic, Open Approach, Diagnostic (ICD-10-PCS; 2017-09-20)
DX: I21.4 Non-ST elevation (NSTEMI) myocardial infarction (principal); I75.89 Atheroembolism of other site; E66.01 Morbid (severe) obesity due to excess calories; M62.82 Rhabdomyolysis; Z68.32 Body mass index [BMI] 32.0-32.9, adult; I25.110 Atherosclerotic heart disease of native coronary artery with unstable angina pectoris; R07.9 Chest pain, unspecified; I10 Essential (primary) hypertension; E78.5 Hyperlipidemia, unspecified; Z82.49 Family history of ischemic heart disease and other diseases of the circulatory system
CPT/HCPCS: 36415; 36416; 71045; 71275; 80048; 80053; 80061; 82550; 82553; 82805; 83690; 84443; 84484; 85014; 85018; 85025; 85049; 85610; 85730; 86850; 86900; 86901; 88307; 93005; 93010; 93306; 93454; 93798; 94002; 94760; 99152; 99153; C1769; J0583; J1642; J1644; J1650; J1885; J2001; J2250; J2270; J2405; J2704; J2720; J3010; J3246; J3370; J3475; J7050; P9045; S0017; S0028